=== PATIENT | female | born 1955 | race American Indian/Alaskan Native ===

== ENCOUNTER 2016-09-23 14:39 | Outpatient (CLI) | payer OTHER ==
--- NOTE | 2016-09-23 16:16 | Mammography Report ---
BILATERAL DIGITAL SCREENING MAMMOGRAM with CAD: 09/23/16 14:39:00 CLINICAL: Routine screening. COMPARISON:07/29/08. A more recent mammogram from [facility] is unavailable. FINDINGS: There are scattered areas of fibroglandular density.A small cluster of left benign calcifications at 12 o'clock. No mass, architectural distortion or suspicious calcifications. IMPRESSION: No mammographic evidence of malignancy. BI-RADS CATEGORY: 2 -- Benign RECOMMENDATION: Routine mammographic screening in one year. COMMENT: Patient follow-up letters are generated by our [employer] application.
== END 2016-09-23 14:40 | disposition home or self-care (01) ==
LOC: MAMMO 14:39
PROVIDERS: ATTEND Family Medicine
DX: Z12.31 Encounter for screening mammogram for malignant neoplasm of breast (principal)
CPT/HCPCS: 77067; G0202

== ENCOUNTER 2016-12-29 16:08 | Emergency (ER) | payer OTHER ==
[2016-12-29 17:03] VITALS: BP 154/80
[2016-12-29 18:32] LABS: Bilirubin,Urine NEG (Negative); Blood,Urine NEG (Negative); Ketones,Urine NEG (Negative); Leukocyte Esterase,Urine TR (Negative); Mucus,Urine FEW /HPF; Nitrite,Urine NEG (Negative); Protein,Urine <15 mg/dL mg/dL (Negative); Urobilinogen,Urine < 2.0 mg/dL (<2.0)
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
== END 2016-12-29 20:30 | disposition home or self-care (01) ==
LOC: ED 16:08
DX: M51.36 Other intervertebral disc degeneration, lumbar region (principal); N30.00 Acute cystitis without hematuria; M54.2 Cervicalgia; M25.561 Pain in right knee; I10 Essential (primary) hypertension; E11.9 Type 2 diabetes mellitus without complications; Z88.8 Allergy status to other drugs, medicaments and biological substances; V43.52XA Car driver injured in collision with other type car in traffic accident, initial encounter; Y93.89 Activity, other specified; Y99.9 Unspecified external cause status; Y92.488 Other paved roadways as the place of occurrence of the external cause
CPT/HCPCS: 72100; 81001; 99283

== ENCOUNTER 2017-06-06 17:40 | Emergency (ER) | payer OTHER ==
[2017-06-06] MEDS ORDERED: MOTRIN ONE (20:49)
[2017-06-06] MEDS ORDERED: MOTRIN PO ONE (20:50)
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
[2017-06-07 02:40] VITALS: BP 139/64
== END 2017-06-07 02:38 | disposition home or self-care (01) ==
LOC: ED 17:40
DX: S16.1XXA Strain of muscle, fascia and tendon at neck level, initial encounter (principal); I10 Essential (primary) hypertension; E11.9 Type 2 diabetes mellitus without complications; V49.49XA Driver injured in collision with other motor vehicles in traffic accident, initial encounter; Y93.89 Activity, other specified; Y92.89 Other specified places as the place of occurrence of the external cause; Y99.8 Other external cause status
CPT/HCPCS: 99282

== ENCOUNTER 2017-11-01 09:24 | Outpatient (CLI) | payer OTHER ==
--- NOTE | 2017-11-01 16:17 | Mammography Report ---
BILATERAL DIGITAL SCREENING MAMMOGRAM with CAD : 11/01/17 09:24:00 CLINICAL: Routine screening. COMPARISON:09/23/16 FINDINGS: The breasts are heterogeneously dense, which may obscure small masses. No mass, architectural distortion or suspicious calcifications. IMPRESSION: No mammographic evidence of malignancy. BI-RADS CATEGORY: 2 -- Benign RECOMMENDATION: Routine mammographic screening in one year. COMMENT: Patient follow-up letters are generated by our [employer] application.
== END 2017-11-01 09:25 | disposition home or self-care (01) ==
LOC: MAMMO 09:24
PROVIDERS: ATTEND Family Medicine
DX: Z12.31 Encounter for screening mammogram for malignant neoplasm of breast (principal)
CPT/HCPCS: 77067

== ENCOUNTER 2018-05-21 09:33 | Emergency (ER) | payer OTHER ==
[2018-05-21 10:02] VITALS: BP 175/57
[2018-05-21 10:37] LABS: Basophils # (Auto) 0.1 K/mm3 (0.0-0.1); Eosinophils # (Auto) 0.2 K/mm3 (0.0-0.4); Eosinophils % (Auto) 3.8 % (0.0-4.3); Hematocrit 41.5 % (30.3-42.9); Lymphocytes # (Auto) 2.3 K/mm3 (1.2-5.4); Lymphocytes % (Auto) 35.2 % (13.4-35.0); Mean Corpuscular HGB Conc 31 % (30-34); Mean Corpuscular Volume 81 fl (79-97); Monocytes # (Auto) 0.3 K/mm3 (0.0-0.8); Platelet Count 220 K/mm3 (140-440); Red Cell Distribution Width 15.4 % (13.2-15.2)
[2018-05-21 10:52] LABS: Alanine Aminotransferase 12 units/L (7-56); BUN/Creatinine Ratio 23; Blood Urea Nitrogen 16 mg/dL (7-17); Calcium 9.1 mg/dL (8.4-10.2); Hemolysis Index 66
[2018-05-21 12:05] LABS: Bilirubin,Urine NEG (Negative); Blood,Urine NEG (Negative); Color,Urine Yellow (Yellow); Mucus,Urine FEW /HPF; Protein,Urine <15 mg/dL mg/dL (Negative); RBC,Urine < 1.0 /HPF (0.0-6.0); Urobilinogen,Urine < 2.0 mg/dL (<2.0); WBC,Urine < 1.0 /HPF (0.0-6.0)
--- NOTE | 2018-05-21 12:29 | Emergency Department Report ---
Chief Complaint: Abdominal Pain Stated Complaint: STOMACH PAIN/LFT SIDE Time Seen by Provider: 05/21/18 12:27 - HPI History of Present Illness: 62-year-old female presents to the emergency department with acute on chronic left lower quadrant abdominal and flank pain. More recently it has become very severe and radiates towards the left to mid back. She always has a history of some level of constipation. No fever, nausea, vomiting. Past medical history of diabetes, hypertension, thyroid goiter and some acid reflux. Patient briefly started on PPI after upper EGD. Primary care is Dr. Carina Miller. GI is Dr. Jt MARS Review of Systems: Positive for abdominal and flank pain, back pain, constipation Negative for fever, nausea, vomiting - Exam Vital Signs: Vital Signs 05/21/18 09:59 Temperature 98.6 F Pulse Rate 51 L Respiratory 18 Rate Blood Pressure 175/57 O2 Sat by Pulse 99 Oximetry Physical Exam: No gait abnormalities. Obese habitus. Left lower quadrant abdominal tenderness to palpation but abdomen is soft. MSE screening note: Focused history and physical exam performed. Due to findings the following was ordered: Patient has a normal-appearing CBC, CMP and urinalysis. We will order a CT of the abdomen and pelvis with IV contrast. ED Medical Decision Making - Lab Data Result diagrams: 05/21/18 10:13 05/21/18 10:13 ED Disposition for MSE Condition: Stable Instructions: Abdominal Pain (ED) Referrals: CARINA MILLER MD [Primary Care Provider] - 3-5 Days
--- NOTE | 2018-05-21 14:28 | Cat Scan Report ---
FINAL REPORT EXAM: CT ABDOMEN PELVIS W CON HISTORY: LLQ, flank pain radiate to back TECHNIQUE: CT of the abdomen and pelvis was performed after the administration of intravenous contra st. Subsequently, CT of the abdomen and pelvis was performed in the delayed phase. 100 cc of Omnipaqu e 300 intravenous contrast were given. Reconstructions were included in the coronal and sagittal planes. PRIORS: None. FINDINGS: Lower thorax: There is a 5 millimeter left lower lobe pulmonary nodule on series 2, image 6. There is a small hiatal hernia. The visualized portions of the heart are normal. Liver: The liver is normal in attenuation. No intrahepatic biliary duct dilation. No focal hepatic le sions. Gallbladder/ biliary system: Cholelithiasis is seen. No gallbladder wall thickening or pericholecysti c fluid. The common bile duct appears nondilated. Spleen: There is a large simple splenic cyst. Pancreas: No pancreatic lesions are seen. No pancreatic duct dilation. Kidneys: Small probable simple right inferior pole renal cyst is seen. No left renal cysts. No hydron ephrosis. No ureteral filling defects. Adrenal glands: No adrenal masses. Vasculature: The abdominal and pelvic vasculature is patent without variant anatomy. Lymph nodes: No enlarged lymph nodes are seen in the abdomen or pelvis. Bowel, mesentery, peritoneum: No bowel obstruction. No free fluid or free air. The appendix is normal . Mild colonic diverticulosis is seen. No diverticulitis. No bowel wall thickening. Urinary bladder: No filling defects are seen. Pelvis: Post hysterectomy. No pelvic masses. Abdominal wall: No abdominal wall hernia or other subcutaneous findings. Bones: Degenerative changes are seen in the spine. IMPRESSION: 1. No acute intra-abdominal or intrapelvic process. 2. Mild colonic diverticulosis without diverticulitis. 3. Small probable simple right inferior pole renal cyst. 4. Large simple splenic cyst. 5. Cholelithiasis. 6. 5 millimeter left lower lobe pulmonary nodule. Recommend further evaluation with chest CT to exclu de other pulmonary nodules. 7. Small hiatal hernia.
--- NOTE | 2018-05-21 15:08 | Emergency Department Report ---
ED Abdominal Pain HPI - General Chief Complaint: Abdominal Pain Stated Complaint: STOMACH PAIN/LFT SIDE Time Seen by Provider: 05/21/18 12:27 Source: patient Mode of arrival: Ambulatory Limitations: No Limitations - History of Present Illness Initial Comments: 62F PMH DMT2, HTN, RLS, Hypothyroid GERD, Chronic Abdominal Pain presents with acute on chronic left lower abdominal pain. Patient states she feels it near her left hip. Denies any recent falls or trauma or recent strain of her abdomen or head. Patient is ambulatory without assistance. Patient is awake alert and oriented 3 fully lucid does not appear to be in acute distress. Denies any rash on flank or hip. Denies any dysuria or increased urinary frequency or hematuria. Denies smoking drinking drug use. MD Complaint: abdominal pain Onset/Timin -: week(s) Location: LLQ Radiation: LLQ Migration to: LLQ Severity: moderate Severity scale (0 -10): 6 Quality: aching, sharp Consistency: constant Improves With: nothing Associated Symptoms: denies other symptoms - Related Data Home Medications Medication Instructions Recorded Confirmed Last Taken Ibuprofen [Motrin] 800 mg PO Q8HR PRN 03/04/16 03/04/16 Unknown Lisinopril [Zestril] 20 mg PO QDAY 03/04/16 03/04/16 Unknown metFORMIN [Glucophage] 850 mg PO BID 03/04/16 03/04/16 Unknown Previous Rx's Medication Instructions Recorded Last Taken Type traMADol [Ultram] 50 mg PO Q6HR PRN #20 tablet 03/04/16 Unknown Rx Nitrofurantoin [place]/M-Cryst 100 mg PO Q12HR #14 capsule 12/29/16 Unknown Rx [Macrobid CAP] traMADol [Ultram] 50 mg PO Q6HR PRN #12 tablet 12/29/16 Unknown Rx Cyclobenzaprine [Flexeril] 10 mg PO QHS PRN #20 tablet 06/07/17 Unknown Rx Naproxen [Naprosyn] 500 mg PO BID #30 tablet 06/07/17 Unknown Rx Acetaminophen [Tylenol] 650 mg PO QID PRN #30 capsule 04/10/18 Unknown Rx Amoxicillin/Potassium Clav 1 each PO BID #20 tablet 04/10/18 Unknown Rx [Augmentin 875-125 Tablet] Fluticasone [Flonase] 1 spray NS QDAY #1 bottle 04/10/18 Unknown Rx Acetaminophen [Acetaminophen TAB] 500 mg PO Q6HR PRN #30 tablet 05/21/18 Unknown Rx Omeprazole 40 mg PO QDAY #44 capsule. 05/21/18 Unknown Rx Allergies Allergy/AdvReac Type Severity Reaction Status Date / Time pregabalin [From Lyrica] Allergy Shortness Verified 05/21/18 09:59 of Breath ED Review of Systems ROS: Stated complaint: STOMACH PAIN/LFT SIDE Other details as noted in HPI Constitutional: denies: chills, fever Eyes: denies: eye pain, eye discharge, vision change ENT: denies: ear pain, throat pain Respiratory: denies: cough, shortness of breath, wheezing Cardiovascular: denies: chest pain, palpitations Endocrine: no symptoms reported Gastrointestinal: abdominal pain, nausea, vomiting. denies: diarrhea Genitourinary: denies: urgency, dysuria, discharge Musculoskeletal: denies: back pain, joint swelling, arthralgia Skin: denies: rash, lesions Neurological: denies: headache, weakness, paresthesias Psychiatric: denies: anxiety, depression Hematological/Lymphatic: denies: easy bleeding, easy bruising ED Past Medical Hx - Past Medical History Hx Hypertension: Yes Hx Diabetes: Yes Additional medical history: restless leg syndrome THYROID PROBLEMS. GOITER. INTESTINE PROBLEM - Surgical History Additional Surgical History: hysterectomy 02/2015 - Social History Smoking Status: Never Smoker Substance Use Type: None - Medications Home Medications: Home Medications Medication Instructions Recorded Confirmed Last Taken Type Ibuprofen [Motrin] 800 mg PO Q8HR PRN 03/04/16 03/04/16 Unknown History Lisinopril [Zestril] 20 mg PO QDAY 03/04/16 03/04/16 Unknown History metFORMIN [Glucophage] 850 mg PO BID 03/04/16 03/04/16 Unknown History traMADol [Ultram] 50 mg PO Q6HR PRN #20 tablet 03/04/16 Unknown Rx Nitrofurantoin [place]/M-Cryst 100 mg PO Q12HR #14 capsule 12/29/16 Unknown Rx [Macrobid CAP] traMADol [Ultram] 50 mg PO Q6HR PRN #12 tablet 12/29/16 Unknown Rx Cyclobenzaprine [Flexeril] 10 mg PO QHS PRN #20 tablet 06/07/17 Unknown Rx Naproxen [Naprosyn] 500 mg PO BID #30 tablet 06/07/17 Unknown Rx Acetaminophen [Tylenol] 650 mg PO QID PRN #30 capsule 04/10/18 Unknown Rx Amoxicillin/Potassium Clav 1 each PO BID #20 tablet 04/10/18 Unknown Rx [Augmentin 875-125 Tablet] Fluticasone [Flonase] 1 spray NS QDAY #1 bottle 04/10/18 Unknown Rx Acetaminophen [Acetaminophen TAB] 500 mg PO Q6HR PRN #30 tablet 05/21/18 Unknown Rx Omeprazole 40 mg PO QDAY #44 capsule. 05/21/18 Unknown Rx ED Physical Exam - General Limitations: No Limitations General appearance: alert, in no apparent distress - Head Head exam: Present: atraumatic, normocephalic - Eye Eye exam: Present: normal appearance - ENT ENT exam: Present: mucous membranes moist - Neck Neck exam: Present: normal inspection - Respiratory Respiratory exam: Present: normal lung sounds bilaterally. Absent: respiratory distress - Cardiovascular Cardiovascular Exam: Present: regular rate, normal rhythm. Absent: systolic murmur, diastolic murmur, rubs, gallop - GI/Abdominal GI/Abdominal exam: Present: soft, normal bowel sounds - Extremities Exam Extremities exam: Present: normal inspection - Back Exam Back exam: Present: normal inspection - Neurological Exam Neurological exam: Present: alert, oriented X3 - Psychiatric Psychiatric exam: Present: normal affect, normal mood - Skin Skin exam: Present: warm, dry, intact, normal color. Absent: rash ED Course Vital Signs 05/21/18 09:59 Temperature 98.6 F Pulse Rate 51 L Respiratory 18 Rate Blood Pressure 175/57 O2 Sat by Pulse 99 Oximetry ED Medical Decision Making - Lab Data Result diagrams: 05/21/18 10:13 05/21/18 10:13 - Medical Decision Making A/P: Abdominal pain 1-labs including lactic acid, CMP, CBC and UA are unremarkable 2-CT scan shows diverticulosis and possible pulmonary nodule but no other acute findings. I advised her that she must follow-up with a cable respooler to rule out any possible malignancy. Patient was unaware of this previously. Denies any current cough fever chills or hemoptysis. Denies any personal history of cancer or family history of lung cancer 3-since patient states she is concerned about taking pantoprazole I offered her omeprazole as an alternative. As both drugs have a similar side effect profile patient states she'll consider taking omeprazole and switching off of pantoprazole but we'll consult with her GI doctor first 4- patient tolerating by mouth fluid and food without difficulty before discharge 5- Tylenol when necessary for pain Critical care attestation.: If time is entered above; I have spent that time in minutes in the direct care of this critically ill patient, excluding procedure time. ED Disposition Clinical Impression: Abdominal pain Qualifiers: Abdominal location: left lower quadrant Qualified Code(s): R10.32 - Left lower quadrant pain Disposition: TO HOME OR SELFCARE Is pt being admited?: No Does the pt Need Aspirin: No Condition: Stable Instructions: Hiatal Hernia (ED), Diverticulosis (ED), Diverticulosis Diet (ED), Abdominal Pain (ED), Pulmonary Nodules (ED) Prescriptions: Acetaminophen [Acetaminophen TAB] 500 mg PO Q6HR PRN #30 tablet PRN Reason: Pain , Severe (7-10) Omeprazole 40 mg PO QDAY #44 capsule. Referrals: CARINA TRUONG MD [Primary Care Provider] - 3-5 Days [facility] [Provider Group] - 3-5 Days Forms: Work/School Release Form(ED) Time of Disposition: 15:12
[2018-05-21] MEDS ORDERED: PEPCID IV ONE (15:10)
[2018-05-21] MEDS ORDERED: TORADOL IV ONE (15:11)
== END 2018-05-21 15:41 | disposition home or self-care (01) ==
LOC: ED 09:33
DX: R10.32 Left lower quadrant pain (principal); I10 Essential (primary) hypertension; E03.9 Hypothyroidism, unspecified; K21.9 Gastro-esophageal reflux disease without esophagitis; E11.9 Type 2 diabetes mellitus without complications; Z90.710 Acquired absence of both cervix and uterus; Z79.84 Long term (current) use of oral hypoglycemic drugs; Z88.8 Allergy status to other drugs, medicaments and biological substances
CPT/HCPCS: 36415; 74177; 80053; 81001; 82140; 85025; 96374; 96375; 99284; J1885; Q9967

== ENCOUNTER 2018-07-07 16:24 | Emergency (ER) | payer MEDICARE, OTHER ==
--- NOTE | 2018-07-07 17:39 | Emergency Department Report ---
ED Chest Pain HPI - General Chief Complaint: Chest Pain Stated Complaint: CHEST PRESSURE Time Seen by Provider: 07/07/18 17:15 Source: patient, EMS Mode of arrival: Stretcher Limitations: No Limitations - History of Present Illness Initial Comments: 63-year-old -[place] female presents to the emergency department via EMS from home with complaint of some midsternal to left-sided chest pain with some radiation towards the left axilla. It started yesterday evening. Associated with some shortness of breath and some nausea but she denies any vomiting, diaphoresis, back pain or fever. Patient was bleeding of 10 out of 10 pain but it came down to about a 7 after she received aspirin in route with EMS. She has a past medical history of diabetes, hypertension, thyroid goiter, restless leg syndrome. Patient's primary care is through [facility]. No recent travel or sick contacts at home. She denies any tobacco or illicit drug use or abuse. Severity scale (0 -10): 7 - Related Data Home Medications Medication Instructions Recorded Confirmed Last Taken Ibuprofen [Motrin] 800 mg PO Q8HR PRN 03/04/16 03/04/16 Unknown Lisinopril [Zestril] 20 mg PO QDAY 03/04/16 03/04/16 Unknown metFORMIN [Glucophage] 850 mg PO BID 03/04/16 03/04/16 Unknown Previous Rx's Medication Instructions Recorded Last Taken Type traMADol [Ultram] 50 mg PO Q6HR PRN #20 tablet 03/04/16 Unknown Rx Nitrofurantoin [place]/M-Cryst 100 mg PO Q12HR #14 capsule 12/29/16 Unknown Rx [Macrobid CAP] traMADol [Ultram] 50 mg PO Q6HR PRN #12 tablet 12/29/16 Unknown Rx Cyclobenzaprine [Flexeril] 10 mg PO QHS PRN #20 tablet 06/07/17 Unknown Rx Naproxen [Naprosyn] 500 mg PO BID #30 tablet 06/07/17 Unknown Rx Acetaminophen [Tylenol] 650 mg PO QID PRN #30 capsule 04/10/18 Unknown Rx Amoxicillin/Potassium Clav 1 each PO BID #20 tablet 04/10/18 Unknown Rx [Augmentin 875-125 Tablet] Fluticasone [Flonase] 1 spray NS QDAY #1 bottle 04/10/18 Unknown Rx Acetaminophen [Acetaminophen TAB] 500 mg PO Q6HR PRN #30 tablet 05/21/18 Unknown Rx Omeprazole 40 mg PO QDAY #44 capsule. 05/21/18 Unknown Rx Allergies Allergy/AdvReac Type Severity Reaction Status Date / Time pregabalin [From Lyrica] Allergy Shortness Verified 05/21/18 09:59 of Breath Heart Score - HEART Score History: Moderately suspicious EKG: Normal Age: 45-65 Risk factors: > 3 risk factors or hx of atherosclerotic disease Troponin: < normal limit HEART Score: 4 - Critical Actions Critical Actions: 4-6 pts:12-16.6% risk of adverse cardiac event. Should be admitted ED Review of Systems ROS: Stated complaint: CHEST PRESSURE Other details as noted in HPI Comment: All other systems reviewed and negative Constitutional: denies: chills, fever Eyes: denies: eye pain, vision change ENT: denies: ear pain, throat pain Respiratory: shortness of breath. denies: cough Cardiovascular: chest pain. denies: edema Gastrointestinal: nausea. denies: abdominal pain, vomiting Genitourinary: denies: dysuria, frequency Musculoskeletal: denies: back pain, arthralgia Skin: denies: rash, lesions Neurological: denies: headache, weakness ED Past Medical Hx - Past Medical History Previous Medical History?: Yes Hx Hypertension: Yes Hx Diabetes: Yes Additional medical history: restless leg syndrome THYROID PROBLEMS. GOITER. INTESTINE PROBLEM. "afib". hiatal hernia - Surgical History Past Surgical History?: Yes Additional Surgical History: hysterectomy 02/2015 - Social History Smoking Status: Never Smoker Substance Use Type: None - Medications Home Medications: Home Medications Medication Instructions Recorded Confirmed Last Taken Type Ibuprofen [Motrin] 800 mg PO Q8HR PRN 03/04/16 03/04/16 Unknown History Lisinopril [Zestril] 20 mg PO QDAY 03/04/16 03/04/16 Unknown History metFORMIN [Glucophage] 850 mg PO BID 03/04/16 03/04/16 Unknown History traMADol [Ultram] 50 mg PO Q6HR PRN #20 tablet 03/04/16 Unknown Rx Nitrofurantoin [place]/M-Cryst 100 mg PO Q12HR #14 capsule 12/29/16 Unknown Rx [Macrobid CAP] traMADol [Ultram] 50 mg PO Q6HR PRN #12 tablet 12/29/16 Unknown Rx Cyclobenzaprine [Flexeril] 10 mg PO QHS PRN #20 tablet 06/07/17 Unknown Rx Naproxen [Naprosyn] 500 mg PO BID #30 tablet 06/07/17 Unknown Rx Acetaminophen [Tylenol] 650 mg PO QID PRN #30 capsule 04/10/18 Unknown Rx Amoxicillin/Potassium Clav 1 each PO BID #20 tablet 04/10/18 Unknown Rx [Augmentin 875-125 Tablet] Fluticasone [Flonase] 1 spray NS QDAY #1 bottle 04/10/18 Unknown Rx Acetaminophen [Acetaminophen TAB] 500 mg PO Q6HR PRN #30 tablet 05/21/18 Unknown Rx Omeprazole 40 mg PO QDAY #44 capsule. 05/21/18 Unknown Rx ED Physical Exam - General Limitations: No Limitations - Other Other exam information: GENERAL: The patient is well-developed well-nourished. HEENT: Normocephalic. Atraumatic. Patient has moist mucous membranes. EYES: Extraocular motions are intact. Pupils are equal and reactive to light bilaterally. NECK: Supple. Trachea is midline. CHEST/LUNGS: Clear to auscultation. There is no respiratory distress noted. HEART/CARDIOVASCULAR: Regular. There is Mild to moderate bradycardia. There is no obvious murmur. ABDOMEN: Abdomen is soft, nontender. Patient has normal bowel sounds. Obese habitus. SKIN: Skin is warm and dry. NEURO: The patient is awake, alert, and oriented. The patient is cooperative. The patient has no focal neurologic deficits. The patient has normal speech. MUSCULOSKELETAL: There is no tenderness or deformity. There is no evidence of acute injury. ED Course Vital Signs 07/07/18 07/07/18 07/07/18 16:58 17:00 17:30 Temperature 98.1 F Pulse Rate 72 56 L 52 L Respiratory 13 12 16 Rate Blood Pressure 165/96 167/71 O2 Sat by Pulse 99 98 Oximetry 07/07/18 07/07/18 07/07/18 17:49 18:00 18:30 Temperature Pulse Rate 45 L 44 L Respiratory 16 12 24 Rate Blood Pressure 164/84 164/84 O2 Sat by Pulse 98 98 98 Oximetry - Consultations Consultation #1: 07/07/18 20:[address] Hardin, a [facility] physician on the transfer hotline. She agrees with the plan for admission for further evaluation of the patient's chest pain. She says that they will most likely take her to [facility] and she has been accepted by Dr. Ornelas. RED score - Red Score Age > 65: (0) No Aspirin use within the Past 7 Days: (1) Yes 3 or more CAD Risk Factors: (1) Yes 2 or more Angina events in past 24 hrs: (1) Yes Known CAD with more than 50% Stenosis: (0) No Elevated Cardiac Markers: (0) No ST Deviation Greater than 0.5mm: (0) No RED Score: 3 ED Medical Decision Making - Lab Data Result diagrams: 07/07/18 18:00 07/07/18 18:00 - EKG Data -: EKG Interpreted by Me EKG shows normal: sinus rhythm (with PACs), axis, intervals, QRS complexes, ST-T waves Rate: bradycardia (49 bpm) - EKG Data When compared to previous EKG there are: previous EKG unavailable Interpretation: other (sinus bradycardia at 49 bpm with PACs) - Radiology Data Radiology results: image reviewed interpreted by me: Chest x-ray does not show any pneumothorax, pleural effusion, pneumonia or obvious focal consolidation. - Medical Decision Making This patient presents with some midsternal to left-sided chest pain with radiation down under the axilla. The patient has a few risk factors for coron ton artery disease such as diabetes and hypertension. EKG does not show any signs of ST elevation ID or dysrhythmia but does show some moderate bradycardia. Labs thus far been unremarkable including a negative troponin and negative d- dimer. Chest x-ray did not show any pleural effusions, pneumonia, pneumothorax, focal consolidation, or any other acute process. The patient's chest pain has improved but has not resolved and she still complains of some left-sided chest pain/pressure. It has been about 1.5 years since the patient last had a stress test for full cardiac workup. For these reasons I believe the patient should be admitted to the hospital for further evaluation and treatment. The patient was accepted for transfer to [facility] through [facility]. - Differential Diagnosis ID, PE, GERD, Pneumonia Critical Care Time: No Critical care attestation.: If time is entered above; I have spent that time in minutes in the direct care of this critically ill patient, excluding procedure time. ED Disposition Clinical Impression: Acute chest pain, Bradycardia Hypertension Qualifiers: Hypertension type: essential hypertension Qualified Code(s): I10 - Essential (primary) hypertension Disposition: OP ADMIT IP TO THIS HOSP Is pt being admited?: Yes Condition: Fair Instructions: Chest Pain (ED), Hypertension (ED) Time of Disposition: 20:03
[2018-07-07 18:10] LABS: Basophils # (Auto) 0.1 K/mm3 (0.0-0.1); Basophils % (Auto) 1.2 % (0.0-1.8); Eosinophils # (Auto) 0.1 K/mm3 (0.0-0.4); Eosinophils % (Auto) 2.7 % (0.0-4.3); Hematocrit 37.3 % (30.3-42.9); Lymphocytes # (Auto) 1.7 K/mm3 (1.2-5.4); Lymphocytes % (Auto) 32.1 % (13.4-35.0); Mean Corpuscular HGB Conc 32 % (30-34); Mean Corpuscular Volume 79 fl (79-97); Monocytes # (Auto) 0.3 K/mm3 (0.0-0.8); Monocytes % (Auto) 5.2 % (0.0-7.3); Platelet Count 218 K/mm3 (140-440); Red Cell Distribution Width 15.2 % (13.2-15.2)
[2018-07-07 18:26] LABS: BUN/Creatinine Ratio 20; Blood Urea Nitrogen 12 mg/dL (7-17); Calcium 8.8 mg/dL (8.4-10.2); Hemolysis Index 1
[2018-07-07 18:31] LABS: INR 1.01 (0.87-1.13)
[2018-07-07 18:32] LABS: Partial Thromboplastin Time 26.2 Sec. (24.2-36.6)
[2018-07-07] MEDS ORDERED: LANOXIN IV ONE (19:42)
[2018-07-07 21:59] VITALS: BP 153/84
[2018-07-07] MEDS ORDERED: HEPARIN SUB-Q SCH (22:00)
--- NOTE | 2018-07-10 14:20 | XRay Report ---
FINAL REPORT EXAM: XR CHEST 1V AP HISTORY: CP TECHNIQUE: AP portable view of the chest PRIORS: None. FINDINGS: Lines, tubes, and devices: N/A Lungs and pleura: Trachea is normal in position. Lungs are clear of infiltrate, pleural effusion, vas cular congestion, or pneumothorax. Cardiomediastinal silhouette: There is a prominent main pulmonary artery segment. Heart is borderline enlarged. Other: Bony structures are intact. IMPRESSION: No acute cardiopulmonary process seen. Prominent main pulmonary artery segment. Heart is upper limits normal in size.
== END 2018-07-07 22:25 | disposition admitted as inpatient to this hospital (09) ==
LOC: ED 16:24
DX: R07.89 Other chest pain (principal); R00.1 Bradycardia, unspecified; R06.02 Shortness of breath; R11.0 Nausea; I10 Essential (primary) hypertension; E11.9 Type 2 diabetes mellitus without complications; Z90.710 Acquired absence of both cervix and uterus; Z88.8 Allergy status to other drugs, medicaments and biological substances
CPT/HCPCS: 36415; 71045; 80048; 84484; 85025; 85379; 85610; 85730; 93005; 93010